=== PATIENT | male | born 1935 | race Two or more races ===

== ENCOUNTER 2023-08-25 08:48 | Day surgery (SDC) | payer OTHER ==
[~2023-08-25] VITALS: Ht 195.6 cm; Wt 104.3 kg
[2023-08-25] VITALS (9 sets, daily range): BP systolic 104–136; BP diastolic 43–54; PULSE 60–67; RESP 10–14; TEMP 97.6; O2SAT 99–100
[~2023-08-25 08:48] MED LIST: APIX5TAB PO; CARB25TA79 PO; FINA5TAB4 PO; LOSA-535 PO; LUBI24CA7 PO; NIF10C PO; OXY5T PO; POM PO; SELE5CAP3 PO; SIMV80TA17 PO; TAMS0.4C36 PO
[2023-08-25] MEDS ORDERED: ANGIOMAX 250 MG VIAL IV ONE ×2 (13:20→14:35)
[2023-08-25] MEDS ORDERED: GLYCOPYRROLATE 0.2 MG/ML 1ML VIAL ONE ×2 (13:21→13:35)
[2023-08-25] MEDS ORDERED: LIDOCAINE 2%HCL (LOCAL ANESTH.) INJ 20ML MDV ONE (13:21)
[2023-08-25] MEDS ORDERED: SODIUM CHL 0.9% 50 ML ONE ×2 (13:21→14:35)
[2023-08-25] MEDS ORDERED: IODIXANOL 320MG/ML 100ML BTL IV ONE ×2 (13:37→14:33)
[2023-08-25] MEDS ORDERED: fentaNYL CITRATE 100 MCG/2 ML VL ONE (14:12)
[2023-08-25] MEDS ORDERED: MIDAZOLAM HCL 2MG/2ML 2ml VIAL (1mg/ml) ONE (14:12)
[2023-08-25] MEDS ORDERED: hydrALAZINE HCL 20 MG/ML VL ONE (14:13)
[2023-08-25] MEDS ORDERED: CLOPIDOGREL BISULFATE 75 MG TAB ONE (14:49)
== END 2023-08-25 17:18 | disposition home or self-care (01) ==
LOC: CATH 08:48
PROVIDERS: ATTEND Internal Medicine
DX: R09.89 Other specified symptoms and signs involving the circulatory and respiratory systems (principal); I65.23 Occlusion and stenosis of bilateral carotid arteries
CPT/HCPCS: 36222; 36225; 36226; 37236; 76937; 82962; C1725; C1769; C1876; C1887; C1894; J0360; J0583; J1644; J2250; J3010; Q9967; 99152; 99153